=== PATIENT | female | born 1965 | race Two or more races ===

== ENCOUNTER 2022-10-19 15:09 | Outpatient (RCR) | payer MEDICARE, SELFPAY | END 2022-11-30 12:29 | disposition home or self-care (01) | PROVIDERS: Visit Provider Internal Medicine | DX: S82.841D Displaced bimalleolar fracture of right lower leg, subsequent encounter for closed fracture with routine healing (principal); Z51.89 Encounter for other specified aftercare | CPT/HCPCS: 97165 ==